=== PATIENT | female | born 1990 | race Caucasian/White ===

== ENCOUNTER → 2025-01-13 | Outpatient (CLI) | payer OTHER ==
[2025-01-13 13:25] LABS: PLATELET COUNT, AUTOMATED 244 10^3/uL (150-450)
[2025-01-13 13:31] LABS: LDH LACTATE DEHYDROGENASE 150 U/L (120-246)
[2025-01-13 13:32] LABS: ALT/SGPT 16 U/L (7.0-40); AST/SGOT 20 U/L (<34); CREATININE FOR GFR 0.60 MG/DL (0.55-1.30); GLOMERULAR FILTRATION RATE > 90.0 (>60)
[2025-01-13 13:42] LABS: TOTAL PROTEIN,RANDOM URINE 10.8 MG/DL (0.0-14.0)
[2025-01-13 14:05] LABS: HIV 1&2 SCREEN NEGATIVE (NEGATIVE)
[2025-01-13 14:12] LABS: HEPATITIS C VIRUS ABY INDEX < 0.02 INDEX (<0.8)
[2025-01-13 14:38] LABS: Trichomonas vaginalis (AMP) NOT DETECTED (NEGATIVE)
[2025-01-13 15:01] LABS: GC DNA AMPLIFICATION NEGATIVE (NEGATIVE)
== END ==
LOC: M PLALAB 10:05
PROVIDERS: ATTEND Student in an Organized Health Care Education/Training Program
DX: Z34.80 Encounter for supervision of other normal pregnancy, unspecified trimester (principal)

== ENCOUNTER → 2025-01-13 | Outpatient (REF) | payer OTHER | LOC: M PLALAB 09:48 | PROVIDERS: ATTEND Student in an Organized Health Care Education/Training Program | DX: Z34.80 Encounter for supervision of other normal pregnancy, unspecified trimester (principal) ==